=== PATIENT | female | born 1980 | race Asian ===

== ENCOUNTER → 2016-03-25 | Outpatient (CLI) | payer OTHER ==
[2016-03-25 14:46] LABS: BASO % 0.5 %; BASO ABS # 0.03 K/uL (0-0.2); COMPLETE YES; EOS % 6.8 %; HEMATOCRIT 39.6 % (37-47); IG% 0.3 %; LYMPH % 33.3 %; LYMPH ABS # 1.92 K/uL (1.2-3.4); MEAN CELL VOLUME 80.3 fL (80-100); MEAN CORPUSCULAR HGB CONC 33.6 g/dl (32-36); MONO % 7.8 %; NEUT % 51.3 %; PLATELET COUNT 277 K/uL (130-400); RED BLOOD COUNT 4.93 M/uL (4.2-5.4); WHITE BLOOD COUNT 5.77 K/uL (4.8-10.8)
[2016-03-25 15:04] LABS: ALT/SGPT 18 U/L (12-78); AST/SGOT 8 U/L (15-37); BLOOD UREA NITROGEN 14 mg/dl (7-18); BUN/CREATININE RATIO 25.8 (10-20); CALCIUM 8.7 mg/dl (8.5-10.1); CARBON DIOXIDE 26 mmol/L (21-32); CHLORIDE 105 mmol/L (98-107); CREATININE 0.55 mg/dl (0.60-1.20); GLUCOSE 91 mg/dl (70-99); SODIUM 139 mmol/L (136-145)
[2016-03-25 15:15] LABS: ALKALINE PHOSPHATASE 59 U/L (45-117); FERRITIN 13.4 ng/ml (8.0-388.0)
== END | disposition home or self-care (01) ==
LOC: C.LAB1850 12:52
PROVIDERS: ATTEND Dermatology
DX: L29.9 Pruritus, unspecified (principal); L81.9 Disorder of pigmentation, unspecified

== ENCOUNTER → 2016-06-17 | Outpatient (CLI) | payer OTHER | END | disposition home or self-care (01) | LOC: C.PAPS 09:29 | PROVIDERS: ATTEND Family Medicine | DX: Z12.4 Encounter for screening for malignant neoplasm of cervix (principal) ==

== ENCOUNTER → 2016-07-20 | Outpatient (CLI) | payer OTHER | END | disposition home or self-care (01) | LOC: C.LAB1850 14:31 | PROVIDERS: ATTEND Dermatology | DX: E55.9 Vitamin D deficiency, unspecified (principal) ==

== ENCOUNTER → 2016-12-22 | Outpatient (CLI) | payer OTHER ==
[2016-12-22 13:33] LABS: BASO % 0.3 %; BASO ABS # 0.02 K/uL (0-0.2); COMPLETE YES; HEMATOCRIT 36.4 % (37-47); IG% 0.6 %; LYMPH % 27.8 %; LYMPH ABS # 1.82 K/uL (1.2-3.4); MEAN CELL VOLUME 79.5 fL (80-100); MEAN CORPUSCULAR HEMOGLOBIN 26.6 pg (25-34); MEAN CORPUSCULAR HGB CONC 33.5 g/dl (32-36); MEAN PLATELET VOLUME 10.8 fL (7.4-10.4); NEUT % 60.3 %; PLATELET COUNT 285 K/uL (130-400); RED BLOOD COUNT 4.58 M/uL (4.2-5.4); WHITE BLOOD COUNT 6.54 K/uL (4.8-10.8)
[2016-12-22 14:33] LABS: URINE APPEARANCE CLEAR (CLEAR); URINE BILIRUBIN NEG (NEG); URINE COLOR YELLOW; URINE NITRITE NEG (NEG); UROBILINOGEN NEG (NEG)
[2016-12-22 14:45] LABS: MANUAL MICROSCOPIC REQUIRED? NO; REVIEW REQ? NO
[2016-12-27 01:36] LABS: CHLAMYDIA TRACH RNA*** NOT DETECTED (NOT DETECTED); GC (NEIS GONORRHOEAE)RNA** NOT DETECTED (NOT DETECTED)
== END | disposition home or self-care (01) ==
LOC: C.LAB1850 11:59
PROVIDERS: ATTEND Obstetrics & Gynecology
DX: Z34.82 Encounter for supervision of other normal pregnancy, second trimester (principal); Z3A.00 Weeks of gestation of pregnancy not specified

== ENCOUNTER → 2017-02-08 | Outpatient (CLI) | payer OTHER ==
[2017-02-08 15:17] LABS: URINE APPEARANCE CLEAR (CLEAR); URINE BILIRUBIN NEG (NEG); URINE COLOR YELLOW; URINE EPITHELIAL CELL AUTO >30 /lpf (0-5); URINE NITRITE NEG (NEG); URINE SPECIFIC GRAVITY 1.016 (1.000-1.030); UROBILINOGEN NEG (NEG)
[2017-02-08 15:21] LABS: MANUAL MICROSCOPIC REQUIRED? NO; REVIEW REQ? NO
== END | disposition home or self-care (01) ==
LOC: C.LABSPEC 14:54
PROVIDERS: ATTEND Obstetrics & Gynecology
DX: Z34.82 Encounter for supervision of other normal pregnancy, second trimester (principal)

== ENCOUNTER → 2017-02-08 | Outpatient (CLI) | payer OTHER ==
[2017-02-08 14:37] LABS: HEMATOCRIT 35.6 % (37-47)
[2017-02-08 15:20] LABS: GTGD 50 Grams
== END | disposition home or self-care (01) ==
LOC: C.LAB1850 12:19
PROVIDERS: ATTEND Obstetrics & Gynecology
DX: Z34.82 Encounter for supervision of other normal pregnancy, second trimester (principal)

== ENCOUNTER → 2017-03-10 | Outpatient (CLI) | payer OTHER ==
[2017-03-24 04:23] LABS: CHOLIC ACID <0.5 umol/L (< OR = 1.8); DEOXYCHOLIC ACID 1.1 umol/L (< OR = 2.4); TOTAL BILE ACIDS 3.1 umol/L (< OR = 6.8)
== END | disposition home or self-care (01) ==
LOC: C.LAB1850 14:22
PROVIDERS: ATTEND Obstetrics & Gynecology
DX: O99.713 Diseases of the skin and subcutaneous tissue complicating pregnancy, third trimester (principal); L29.9 Pruritus, unspecified

== ENCOUNTER → 2017-04-07 | Outpatient (CLI) | payer OTHER | END | disposition home or self-care (01) | LOC: C.LABSPEC 13:44 | DX: Z34.83 Encounter for supervision of other normal pregnancy, third trimester (principal) ==

== ENCOUNTER 2017-05-01 07:45 | Inpatient (IN) | payer OTHER ==
--- NOTE | 2017-04-24 15:39 | PAT Medication Instructions ---
Service Date Apr 24, 2017. Current Home Medication List Multivit/Min/Iron/Fol Ac/Pren ( Vitamin), 1 TAB PO DAILY Medication Instructions For Your Scheduled Surgery - Hold the following medications the morning of surgery: Multivit/Min/Iron/Fol Ac/Pren ( Vitamin), 1 TAB PO DAILY If you have any questions please call us at [phone] or [phone] or [phone]
[2017-04-24 16:19] LABS: BASO % 0.2 %; BASO ABS # 0.02 K/uL (0-0.2); EOS % 2.7 %; EOS ABS # 0.24 K/uL (0-0.5); HEMATOCRIT 36.2 % (37-47); HEMOGLOBIN 11.6 g/dL (12.0-16.0); LYMPH % 27.2 %; LYMPH ABS # 2.41 K/uL (1.2-3.4); MEAN CELL VOLUME 76.5 fL (80-100); MEAN CORPUSCULAR HEMOGLOBIN 24.5 pg (25-34); MEAN PLATELET VOLUME 10.1 fL (7.4-10.4); MONO % 6.7 %; MONO ABS # 0.59 K/uL (0.11-0.59); NEUT % 62.1 %; NEUT ABS # 5.49 K/uL (1.4-6.5); NUCLEATED RED BLOOD CELL ABS 0.02 K/uL (0-0); PLATELET COUNT 257 K/uL (130-400); RED CELL DISTRIBUTION WIDTH CV 14.7 % (11.5-14.5); RED CELL DISTRIBUTION WIDTH SD 41.3 fL (36.4-46.3); WHITE BLOOD COUNT 8.85 K/uL (4.8-10.8)
--- NOTE | 2017-04-28 08:22 | HISTORY & PHYSICAL EXAMINATION ---
DATE OF ADMISSION: 05/01/2017 HISTORY OF PRESENT ILLNESS: Allyson is scheduled for section on 05/01/2017. This will be a repeat. She has had 2 prior sections and thus we did not offer for this . the only complicating factor is she is advanced maternal age, age 37, her testing was normal though. She was negative for diabetes screening. Anatomy ultrasound was normal. PAST MEDICAL HISTORY: She is healthy, 2 prior sections. PAST SURGICAL HISTORY: No other medical problems. MEDICATIONS: Prenatals. DRUG ALLERGIES: None. REVIEW OF SYSTEMS: Negative. PHYSICAL EXAMINATION: VITAL SIGNS: Stable. She is afebrile. CHEST: Clear. CARDIOVASCULAR: Normal rate and rhythm. No audible murmur. ABDOMEN: Gravid, symphysis fundal height is at term. heart rate tones are by nonstress test. PELVIC: Exam not done at this time. IMPRESSION AND PLAN: This is her third section. We discussed risks, benefits and alternatives. Did not recommend it be back in this situation. Discussed risks including injury to bowel, bladder, ureter, vessels, deep vein thrombosis, pulmonary embolus and injury to the baby. We discussed increased risk of internal organ injury when this is her third section due to potential scar tissue. Discussed how this would all be addressed. After full discussion of the procedure, risks, benefits and alternatives, were scheduled for a low segment transverse section.
[~2017-05-01] VITALS: Ht 154.9 cm; Wt 75.0 kg
[2017-05-01] VITALS (12 sets, daily range): BP systolic 100–114; BP diastolic 58–70; PULSE 69–82; TEMP 36–36.9; O2SAT 97–100; Ht 154.9 cm; Wt 75.0 kg
[~2017-05-01 07:45] MED LIST: CEFAZOLIN IV 2,000 MG in SYRINGE 0 ML IV SCH; CITRIC ACID/SODIUM CITRATE 15 ML UDC PO SCH; LACTATED RINGER'S 1000ML 1,000 ML IV SCH; PRENTAB26 PO
--- NOTE | 2017-05-01 08:37 | History & Physical Bridge Note ---
H&P Re-Evaluation Bridge Note: I have examined the patient, reviewed the History & Physical and in the interval since the performance of the History & Physical I have noted the following changes of clinical significance: No changes noted
[2017-05-01] MEDS ORDERED: FENTANYL CITRATE INJ 50 MCG/1 ML 2 ML VIAL ONE (09:19)
[2017-05-01] MEDS ORDERED: MoRPHine SULFATE PF 1 MG/ML 10 ML AMP/VIAL ONE (09:20)
[2017-05-01] MEDS ORDERED: OXYTOCIN INJ 10 UNITS/ML VIAL ONE ×2 (09:21→10:27)
[2017-05-01] MEDS ORDERED: PHENYLEPHRINE HCL INJ 10 MG/ML VIAL ONE (10:13)
--- NOTE | 2017-05-01 10:56 | [facility] Post Operative Brief Note ---
Immediate Operative Summary Operative Date May 01, 2017. Pre-Operative Diagnosis Repeat Caesarean Section Post-Operative Diagnosis Repeat Caesarean Section Procedure(s) Performed Repeat Caesarean Section for a living female child at [address] Coelho Hot Metal Car Operator Surgeon(s) Dr. Tellez Estimated Blood Loss 600 ml Findings Consistent with Post-Op Diagnosis Specimens placenta-hold arterial/venous cord gases cord blood Drains Luna Anesthesia Type MAC Spinal Regional Complication(s) none Disposition Accompanied Pt To Recover: no Disposition: L&D
[2017-05-01] MEDS ORDERED: HYDROCORTISONE ACETATE 25 MG SUPP PR PRN (11:00)
[2017-05-01] MEDS ORDERED: MAGNESIUM HYDROXIDE SUSP 30 ML UDC PO PRN (11:00)
[2017-05-01] MEDS ORDERED: SENNA 8.6 MG TAB PO PRN (11:00)
[2017-05-01] MEDS ORDERED: LANOLIN OINT EXT PRN (11:00)
[2017-05-01] MEDS ORDERED: OXYCODONE/ACETAMINOPHEN 5-325 TAB PO PRN (11:00)
[2017-05-01] MEDS ORDERED: SUPERCREAM 0.870 % 15GM JAR EXT PRN (11:00)
[2017-05-01] MEDS ORDERED: BENZOCAINE 20% AER SPR 82.5 GM CAN EXT PRN (11:00)
[2017-05-01] MEDS ORDERED: DIPHTHERIA/TETANUS/PERTUSSIS 0.5 ML SYR/VIAL IM. ONE (11:00)
[2017-05-01] MEDS ORDERED: SODIUM CHLORIDE 0.9% 1000ML 1,000 ML IV PRN (11:10)
[2017-05-01] MEDS ORDERED: NALOXONE HCL INJ 1 MG in SODIUM CHLORIDE 0.9% 1000ML 1,000 ML IV PRN (11:10)
[2017-05-01] MEDS ORDERED: NALOXONE HCL INJ 0.08 MG in SYRINGE 1.8 ML IV PRN (11:10)
[2017-05-01] MEDS ORDERED: LACTATED RINGER'S 1000ML 500 ML IV PRN (11:10)
--- NOTE | 2017-05-01 11:14 | Anesthesiology Progress Note ---
Anesthesia Post Op Note Date & Time May 01, 2017 at 11:13 Notes Mental Status: alert / awake / arousable, participated in evaluation Pt Amnestic to Procedure: Yes Nausea / Vomiting: adequately controlled Pain: adequately controlled Airway Patency, RR, SpO2: stable & adequate BP & HR: stable & adequate Hydration State: stable & adequate Neuraxial Anesthesia: was administered, sensory block is resolving Anesthetic Complications: no major complications apparent
[2017-05-01] MEDS ORDERED: PROMETHAZINE HCL INJ 25 MG in SODIUM CHLORIDE 0.9% 50ML 50 ML IV PRN (11:15)
[2017-05-01] MEDS ORDERED: DiphenhydrAMINE HCL 50 MG/ML VIAL IV PRN (11:15)
[2017-05-01] MEDS ORDERED: MoRPHine SULFATE 2 MG/ML CARP IV PRN (11:15)
[2017-05-01] MEDS ORDERED: ONDANSETRON INJ 2 MG/ML 2 ML VIAL IV PRN (11:15)
[2017-05-01] MEDS ORDERED: KETOROLAC TROMETHAMINE 30 MG/ML VIAL IV. PRN (11:15)
[2017-05-01] MEDS ORDERED: NALOXONE HCL 0.4 MG/1 ML VIAL/CARP IV PRN (11:15)
[2017-05-01] MEDS ORDERED: MoRPHine SULFATE PF 1 MG/ML 10 ML AMP/VIAL EPI PRN (11:15)
[2017-05-01] MEDS ORDERED: EpHEDrine SULFATE INJ 50 MG/ML AMP IV PRN (11:15)
[2017-05-01] MEDS ORDERED: NO NARCOTICS OR SEDATIVES SCH (11:15)
[2017-05-01] MEDS ORDERED: NALBUPHINE HCL INJ 10 MG/ML AMP IV PRN (11:15)
[2017-05-01] MEDS ORDERED: MEPERIDINE HCL 25 MG/ML CARP IV PRN (11:15)
--- NOTE | 2017-05-01 11:21 | Discharge Instructions ---
Discharge Instructions Date of Service May 01, 2017. Admission Reason for Admission: Previous Section Discharge Discharge Diagnosis / Problem: Discharge Goals Goal(s): Routine recovery after Medications Continue Dispensed Medications: supercream, lansinoh Activity Recommendations Activity Limitations: per Instructions/Follow-up section . Instructions / Follow-Up Instructions / Follow-Up ACTIVITY RECOMMENDATIONS: * Gradual return to full activity over the next 2-3 weeks. * No lifting - nothing heavier than baby over the next 2-3 weeks. * Do not engage in vigorous exercise, sexual activity or sports until cleared by your physician. * Do not drive or operate any motorized equipment until cleared by your physician. * You may shower/bathe daily. MEDICATIONS: For discomfort or pain, you may use Acetaminophen (Tylenol), Ibuprofen (Advil), or Naproxen (Aleve) following the package directions. For constipation you may use Colace following the package directions. BREAST CARE: If you are not breast feeding: * Wear a supportive bra 24 hours a day for one to two weeks. * Avoid stimulating your breasts and nipples as much as possible during the first few weeks after delivery. * When taking a shower, have the warm water hit your back, not breasts. * When your breasts feel full, apply ice packs. Usually three to four times a day helps ease the discomfort. * Take a mild pain medication (Tylenol / Motrin) when you are uncomfortable. If breast feeding: * Use breast milk to lubricate nipples. Lansinoh cream may be used for sore nipples. You do not need to remove cream prior to breast feeding. If using a different brand of cream, check the label for directions regarding removal of cream prior to nursing. * Wear a supportive bra. * If having problems with breasts or breast feeding, call a sap ppm consultant or your health care provider. SPECIAL CARE INSTRUCTIONS: When you are discharged from the hospital, it is important for you to follow the instructions listed below: * During the first week at home, you should be able to care for yourself and your baby. In addition, the usual light household activities are encouraged. * Limit your activities to the way you feel. Do not try to clean the house or move furniture. Be sensible. * If you actively engage in sports and have done so up until the time of your delivery, you may resume these activities as soon as you feel able. This may take up to one month or even longer. Use good judgment. * Continue to take your vitamins for at least six weeks after the of your baby. * Your diet need not be limited unless you were on a special diet before your delivery. Breast-feeding mothers need around 2500 calories per day and at least 64-80 ounces of fluid per day (8 to 10 glasses). * You should eat foods from the four major food groups. Crash diets or fad diets are to be avoided. Eating lean meats, fresh fruits and vegetables, low-fat dairy products, high fiber foods and a regular exercise program, will help you get back to your pre- weight without putting your health at risk. * Constipation is sometimes a problem after delivery. Take a mild laxative as needed. If breast feeding, Milk of Magnesia is acceptable to use. You may use a suppository or Fleets enema. * A daily shower or tub bath is suggested. Wash incision daily with warm soapy water and pat dry. It doesn't need to be covered unless drainage is present. * A bloody vaginal discharge will usually continue until around four weeks . A small amount of bleeding may continue for as long as six weeks. Vaginal discharge changes from the bright red bleeding after delivery to pink then brownish and finally yellowish-pink before becoming white and disappearing. * Bleeding may increase with activity. Your first period may come in 4-8 weeks. If you are breast feeding, your period may be delayed even longer. * [place] (sex) can begin whenever both you and your partner feel comfortable and do not have any form of genital infection. It is recommended that you wait at least six weeks for internal and external healing to occur. If you have questions, please talk to your health care practitioner. A condom should be used to prevent infection and . * Foreplay, gentle intercourse and lubrication is very important the first several times to prevent pain. A water-based lubricant such as K-Y jelly or Astroglide may be used. * If you have RH negative blood and your baby is RH positive, you will receive RHOGAM by injection prior to discharge. The nurse will give you a card to keep with you that has the date and place that you received RHOGAM after delivery. * During your care, you had a Rubella screen done to check for the presence of rubella antibodies in your blood. If your test was negative, you will receive a Rubella vaccine prior to discharge. This vaccine may cause a fever, soreness at the injection site and flu-like symptoms. If these symptoms persist, notify your health care practitioner. is not advised for one month after a Rubella vaccine. * Verbalizes understanding of car seat law as reviewed with patient nursing. * Car Seat hand-out given and reviewed with patient by nursing. * Shaken baby information reviewed with patient by nursing. Call you doctor if: * Heavy bleeding (saturating several pads an hour) or passing clots the size of your fist. * A fever >101 degrees F (38.3 degrees C) on two occasions four hours apart and /or chills. * Unusual pain in the pelvic or vaginal areas. * Call the doctor for any increased redness, drainage or swelling around the incision and any pain unrelieved by prescribed pain medication. * "Baby Blues" lasting longer than two weeks. If you have any questions or concerns, call your health care practitioner at . FOLLOW UP VISIT: * Please call the office at to schedule a 6 week examination. It is important you keep this appointment. It is important for you to make arrangements for either yearly or twice yearly check-ups thereafter. Current Hospital Diet Patient's current hospital diet: Discharge Diet Recommended Diet: Regular Diet Procedures Procedures Performed: Repeat Caesarean Section for a living female child at 1026 Pending Studies Studies pending at discharge: no Medical Emergencies . Who to Call and When: Medical Emergencies: If at any time you feel your situation is an emergency, please call [phone] immediately. . Non-Emergent Contact Non-Emergency issues call your: Primary Care Provider . . "Provider Documentation" section prepared by Shayy Franco. . VTE Core Measure Inpt VTE Proph given/why not?: SCD's
[2017-05-01] MEDS: OXYTOCIN INJ 20 UNITS in LACTATED RINGER'S 1000ML 1,000 ML IV SCH ×2 (11:35→19:33)
--- NOTE | 2017-05-01 12:49 | OPERATIVE REPORT ---
DATE OF OPERATION: 05/01/2017 PREOPERATIVE DIAGNOSIS: Repeat section. POSTOPERATIVE DIAGNOSIS: Repeat section. PROCEDURE: Low transverse section. SURGEON: Dr. Mike Coelho. WATER HAULER: Dr. Yee, [facility] resident. ESTIMATED BLOOD LOSS: 600 mL FINDINGS: Consistent with preop diagnosis. SPECIMENS: Placenta and cord gases and cord blood. DRAINS: Villegas catheter. ANESTHETIC: Spinal. COMPLICATIONS: None. DISPOSITION: Labor and delivery. DESCRIPTION OF PROCEDURE: The patient was given a spinal anesthetic, prepped and draped in supine position after receiving a Villegas catheter. She received preoperative antibiotics and then skin area was tested with pickups with teeth and found to be adequate. Scalpel was used to incise over the prior Pfannenstiel dissecting down through subcutaneous fat to the fascia in the midline. Fascia dissected laterally with curved Mcfarlane scissors and then fascia dissected away from the rectus muscles superiorly and inferiorly with curved Mayos. Rectus muscle was split. Peritoneal cavity entered in a superior location and the peritoneal cavity opening enlarged to allow exposure and then bladder retractor placed. There were significant bladder adhesions. We carefully used Metzenbaums to lyse these away and then were able to expose the low segment and scalpel was used to make a low transverse incision. Entry was done bluntly with the coning machine operator's fingers and then opening expanded with the coning machine operator's fingers to allow delivery. Baby was in vertex position, delivered by flexion of the head and then pressure on the abdomen. Baby was delivered without difficulty. Loose nuchal cord x2. Clear fluid. Mouth and then nares were suctioned. Live vigorous female . Cord clamped and cut. Cord gases obtained. Cord blood obtained. Placenta removed manually. We ensured all placental material removed with a moist lap. Uterus exteriorized. IV Pitocin started. Uterus closed in the usual fashion with a running 0 Monocryl locked and a second reinforcing nonlocked 0 Monocryl. We did ensure the bladder was well away from the closure site. After generous irrigation and suction of the posterior cul-de-sac and anterior bladder flap regions, uterus was placed back in the peritoneal cavity and hemostasis was excellent. Retractors removed. Fascia closed with 0 Vicryl. Note, we did ensure there were no rectus muscle bleeders. Subcutaneous fat irrigated and closed with 3-0 Vicryl and skin closed with a 4-0 subcuticular Monocryl. Sponge and instrument counts correct. Urine was clear at the end of the procedure. I attest to the content of the Intraoperative Record and any orders documented therein. Any exceptions are noted below. MTDD
[2017-05-01] MEDS: DOCUSATE SODIUM 100 MG CAP PO SCH (20:11)
[2017-05-01] MEDS: SIMETHICONE 80 MG CHEW PO SCH (20:11)
[2017-05-02] VITALS (10 sets, daily range): BP systolic 96–117; BP diastolic 57–79; PULSE 83–97; TEMP 36.4–37.1; O2SAT 97–99
[2017-05-02] MEDS ORDERED: ZOLPIDEM TARTRATE 5 MG TAB PO PRN (04:00)
[2017-05-02] MEDS ORDERED: ONDANSETRON INJ 2 MG/ML 2 ML VIAL IV PRN (04:00)
[2017-05-02] MEDS ORDERED: MEPERIDINE HCL 50 MG/ML CARP IV PRN ×2 (04:00)
[2017-05-02] MEDS ORDERED: DC INTRASPINAL MORPHINE SCH (04:00)
[2017-05-02] MEDS ORDERED: DiphenhydrAMINE HCL 50 MG/ML VIAL IV PRN (04:00)
[2017-05-02] MEDS ORDERED: KETOROLAC TROMETHAMINE 30 MG/ML VIAL IV. PRN (04:00)
--- NOTE | 2017-05-02 06:44 | Progress Note ---
Subjective May 02, 2017. Subjective conversation w/ patient (Patient seen and examined at bedside) Ambulation: ambulating normally Voiding: no voiding problems Passing Gas: Yes Diet Tolerance: Regular Diet Lochia: Moderate Feeding Type: Breast Feeding Pain: 5/10 pain, localized to the incision Review of Systems Constitutional: No fever, No chills Respiratory: No shortness of breath Cardiac: No chest pain Abdomen: No nausea, No vomiting Female : No dysuria Objective Vital Signs Date Time Temp Pulse Resp B/P (MAP) Pulse Ox O2 Delivery O2 Flow Rate FiO2 05/02/17 03:40 37.1 83 18 96/57 (70) 97 Room Air 05/02/17 03:00 18 98 05/02/17 02:00 18 98 05/02/17 01:00 18 98 05/02/17 00:45 37.1 86 18 111/72 (85) 99 Room Air 05/02/17 00:45 99 Room Air 05/02/17 00:00 18 99 05/01/17 23:00 18 99 05/01/17 22:00 18 98 05/01/17 21:00 18 97 05/01/17 20:11 97 Room Air 05/01/17 20:11 36.9 69 18 107/58 (74) 97 Room Air 05/01/17 20:00 18 97 05/01/17 19:00 18 98 05/01/17 18:09 18 100 05/01/17 18:00 16 100 Room Air 05/01/17 16:36 36.3 81 18 100/64 (76) 100 Room Air 05/01/17 16:30 18 100 05/01/17 16:23 36.0 82 18 114/70 (85) 100 Room Air 05/01/17 15:25 100 Room Air Physical Exam General Appearance: WELL-APPEARING, WD/WN, NO APPARENT DISTRESS Respiratory/Chest: lungs clear, normal breath sounds Cardiovascular: regular rate, rhythm Abdomen: soft Fundus: Firm, Tender, Relation to Umbilicus (1 below) Incision Description: Clean, Dry & Intact Extremities: no calf tenderness Laboratory Results Last 24 Hours Test 05/02/17 06:00 Medications Current Inpatient Medications Medications (Trade) Dose Ordered Sig/Jose Route Start Time Stop Time Status Last Admin Dose Admin Ketorolac Tromethamine (Toradol Inj) 30 mg Q6H PRN IV. 05/02/17 04:00 05/07/17 03:59 05/01/17 20:12 30 MG Oxycodone/ Acetaminophen (Percocet 5-325mg Tab) `1-2 tabs for pain 1 tab ... Q4H PRN PO 05/02/17 04:00 05/16/17 03:59 Ibuprofen (Motrin Tab) 600 mg Q4H PRN PO 05/01/17 11:00 05/31/17 10:59 Bisacodyl (Dulcolax Tab) 5 mg HS ONCE PO 05/02/17 22:00 05/02/17 22:01 Bisacodyl (Dulcolax Supp) 10 mg PRN PRN [place] 05/03/17 11:00 06/02/17 10:59 Docusate Sodium (coLACE CAP) 100 mg BID PO 05/01/17 20:00 05/31/17 19:59 05/01/17 20:11 100 MG Magnesium Hydroxide (Milk Of Magnesia Susp) 30 ml HS PRN PO 05/01/17 11:00 05/31/17 10:59 Cocaine HCl (Supercream 0.870% Cr) BID PRN EXT 05/01/17 11:00 05/15/17 10:59 Lanolin (Lanolin Oint) PRN PRN EXT 05/01/17 11:00 05/31/17 10:59 Hydrocortisone Acetate (Anusol Hc Supp) 25 mg BID PRN [place] 05/01/17 11:00 05/31/17 10:59 Benzocaine (Dermoplast Aero Spr) 1 appln PRN PRN EXT 05/01/17 11:00 05/31/17 10:59 Diphenhydramine HCl (Benadryl Cap) 25 mg QID PRN PO 05/02/17 04:00 06/01/17 03:59 Diphenhydramine HCl (Benadryl Inj) 25 mg QID PRN IV 05/02/17 04:00 06/01/17 03:59 Senna (Senokot Tab) 17.2 mg HS PRN PO 05/01/17 11:00 05/31/17 10:59 Prenat Multivit/ [place]/Iron/Folic Ac ( Vitamin Tab) 1 tab DAILY PO 05/02/17 08:00 3/15/18 07:59 Meperidine HCl (Demerol Inj) 50 mg Q4H PRN IV 05/02/17 04:00 05/16/17 03:59 Meperidine HCl (Demerol Inj) 75 mg Q4H PRN IV 05/02/17 04:00 05/16/17 03:59 Promethazine HCl 25 mg/Sodium Chloride 51 ml @ 204 mls/hr Q4H PRN IV 05/01/17 11:15 05/31/17 11:14 Ondansetron HCl (Zofran Inj) 4 mg Q4H PRN IV 05/02/17 04:00 06/01/17 03:59 Zolpidem Tartrate (Ambien Tab) 5 mg HSZ PRN PO 05/02/17 04:00 06/01/17 03:59 Simethicone (Mylicon Chew Tab) 80 mg QID PO 05/01/17 13:00 05/31/17 12:59 05/01/17 20:11 80 MG Assessment and Plan Post-Op Day#: 1 Continue Routine Care: 37 year old s/p elective repeat day 1 - pt doing well clinically - O+, Rubella immune, GBS +ve - vitals reviewed and wnl - hemoglobin 11.6 yesterday & another Hgb ordered for today - continue to encourage ambulation, and analgesia prn Resident Physician Supervision Note: I interviewed and examined the patient. Discussed with Dr. Lucas and agree with findings and plan as documented in the note. Any exceptions or clarifications are listed here: [None] Documented By: Jony Coelho Resident Tracking Resident Involvement: Resident Care Provided Care Provided: OB Delivery
[2017-05-02 07:19] LABS: BASO % 0.2 %; BASO ABS # 0.02 K/uL (0-0.2); EOS % 1.8 %; EOS ABS # 0.17 K/uL (0-0.5); HEMATOCRIT 33.2 % (37-47); HEMOGLOBIN 10.6 g/dL (12.0-16.0); IG# 0.05 K/uL (0.00-0.02); LYMPH % 14.7 %; LYMPH ABS # 1.36 K/uL (1.2-3.4); MEAN CORPUSCULAR HEMOGLOBIN 24.3 pg (25-34); MEAN CORPUSCULAR HGB CONC 31.9 g/dl (32-36); MEAN PLATELET VOLUME 9.7 fL (7.4-10.4); MONO % 6.7 %; MONO ABS # 0.62 K/uL (0.11-0.59); NEUT % 76.1 %; NEUT ABS # 7.02 K/uL (1.4-6.5); PLATELET COUNT 227 K/uL (130-400); RED CELL DISTRIBUTION WIDTH SD 41.6 fL (36.4-46.3); WHITE BLOOD COUNT 9.24 K/uL (4.8-10.8)
[2017-05-02] MEDS ORDERED: PRENATAL VITAMIN TAB PO SCH (08:00)
[2017-05-02] MEDS: DOCUSATE SODIUM 100 MG CAP PO SCH ×2 (08:37→20:13)
[2017-05-02] MEDS: SIMETHICONE 80 MG CHEW PO SCH ×4 (08:37→20:13)
[2017-05-02] MEDS: PRENATAL VITAMIN TAB PO SCH (08:37)
[2017-05-02] MEDS: OXYCODONE/ACETAMINOPHEN 5-325 TAB PO PRN ×2 (12:45→23:26)
[2017-05-02] MEDS: IBUPROFEN 600 MG TAB PO PRN ×2 (12:45→23:26)
[2017-05-02] MEDS ORDERED: BISACODYL 5 MG TABEC PO ONE (22:00)
--- NOTE | 2017-05-03 06:16 | Progress Note ---
Subjective May 03, 2017. Subjective conversation w/ patient (Patient seen and examined at bedside) Ambulation: ambulating normally Voiding: no voiding problems Passing Gas: Yes Diet Tolerance: Regular Diet Lochia: Moderate Feeding Type: Breast Feeding Pain: Minimal pain at rest, only after ambulation. Confined to incision. Comment: Pain improved w/analgesia Review of Systems Constitutional: No fever, No chills Respiratory: No shortness of breath Cardiac: No chest pain Abdomen: No pain Female : No dysuria Objective Vital Signs Date Time Temp Pulse Resp B/P (MAP) Pulse Ox O2 Delivery O2 Flow Rate FiO2 05/02/17 23:20 98 Room Air 05/02/17 23:20 37.0 18 116/79 (91) 98 Room Air 05/02/17 20:15 36.4 97 20 111/71 (84) 98 Room Air 05/02/17 15:43 37.0 97 20 117/75 (89) 05/02/17 07:50 37.1 92 20 102/68 (79) Physical Exam General Appearance: WELL-APPEARING, WD/WN, NO APPARENT DISTRESS Respiratory/Chest: lungs clear, normal breath sounds Cardiovascular: regular rate, rhythm Abdomen: soft Fundus: Firm, Non-Tender, Relation to Umbilicus (2 below) Incision Description: Clean, Dry & Intact Extremities: no calf tenderness Laboratory Results Last 24 Hours Test 05/02/17 06:41 White Blood Count 9.24 K/uL Red Blood Count 4.37 M/uL Hemoglobin 10.6 g/dL Hematocrit 33.2 % Mean Corpuscular Volume 76.0 fL Mean Corpuscular Hemoglobin 24.3 pg Mean Corpuscular Hemoglobin Concent 31.9 g/dl Platelet Count 227 K/uL Mean Platelet Volume 9.7 fL Neutrophils (%) (Auto) 76.1 % Lymphocytes (%) (Auto) 14.7 % Monocytes (%) (Auto) 6.7 % Eosinophils (%) (Auto) 1.8 % Basophils (%) (Auto) 0.2 % Neutrophils # (Auto) 7.02 K/uL Lymphocytes # (Auto) 1.36 K/uL Monocytes # (Auto) 0.62 K/uL Eosinophils # (Auto) 0.17 K/uL Basophils # (Auto) 0.02 K/uL RDW Standard Deviation 41.6 fL RDW Coefficient of Variation 15.0 % Immature Granulocyte % (Auto) 0.5 % Immature Granulocyte # (Auto) 0.05 K/uL Medications Current Inpatient Medications Medications (Trade) Dose Ordered Sig/Jose Route Start Time Stop Time Status Last Admin Dose Admin Ketorolac Tromethamine (Toradol Inj) 30 mg Q6H PRN IV. 05/02/17 04:00 05/07/17 03:59 05/01/17 20:12 30 MG Oxycodone/ Acetaminophen (Percocet 5-325mg Tab) `1-2 tabs for pain 1 tab ... Q4H PRN PO 05/02/17 04:00 05/16/17 03:59 05/02/17 23:26 1 TAB Ibuprofen (Motrin Tab) 600 mg Q4H PRN PO 05/01/17 11:00 05/31/17 10:59 05/02/17 23:26 600 MG Bisacodyl (Dulcolax Supp) 10 mg PRN PRN [place] 05/03/17 11:00 06/02/17 10:59 Docusate Sodium (coLACE CAP) 100 mg BID PO 05/01/17 20:00 05/31/17 19:59 05/02/17 20:13 100 MG Magnesium Hydroxide (Milk Of Magnesia Susp) 30 ml HS PRN PO 05/01/17 11:00 05/31/17 10:59 Cocaine HCl (Supercream 0.870% Cr) BID PRN EXT 05/01/17 11:00 05/15/17 10:59 Lanolin (Lanolin Oint) PRN PRN EXT 05/01/17 11:00 05/31/17 10:59 Hydrocortisone Acetate (Anusol Hc Supp) 25 mg BID PRN [place] 05/01/17 11:00 05/31/17 10:59 Benzocaine (Dermoplast Aero Spr) 1 appln PRN PRN EXT 05/01/17 11:00 05/31/17 10:59 Diphenhydramine HCl (Benadryl Cap) 25 mg QID PRN PO 05/02/17 04:00 06/01/17 03:59 Diphenhydramine HCl (Benadryl Inj) 25 mg QID PRN IV 05/02/17 04:00 06/01/17 03:59 Senna (Senokot Tab) 17.2 mg HS PRN PO 05/01/17 11:00 05/31/17 10:59 Prenat Multivit/ [place]/Iron/Folic Ac ( Vitamin Tab) 1 tab DAILY PO 05/02/17 08:00 06/01/17 07:59 05/02/17 08:37 1 TAB Meperidine HCl (Demerol Inj) 50 mg Q4H PRN IV 05/02/17 04:00 05/16/17 03:59 Meperidine HCl (Demerol Inj) 75 mg Q4H PRN IV 05/02/17 04:00 05/16/17 03:59 Promethazine HCl 25 mg/Sodium Chloride 51 ml @ 204 mls/hr Q4H PRN IV 05/01/17 11:15 05/31/17 11:14 Ondansetron HCl (Zofran Inj) 4 mg Q4H PRN IV 05/02/17 04:00 06/01/17 03:59 Zolpidem Tartrate (Ambien Tab) 5 mg HSZ PRN PO 05/02/17 04:00 06/01/17 03:59 Simethicone (Mylicon Chew Tab) 80 mg QID PO 05/01/17 13:00 05/31/17 12:59 05/02/17 20:13 80 MG Assessment and Plan Post-Op Day#: 2 Continue Routine Care: 37 year old s/p elective repeat day 2 - pt doing well clinically - O+, Rubella immune, GBS +ve - vitals reviewed and wnl - hemoglobin 11.6 -> 10.6 - continue to encourage ambulation, and analgesia prn Resident Physician Supervision Note: I interviewed and examined the patient. Discussed with Dr. Westbrook and agree with findings and plan as documented in the note. Any exceptions or clarifications are listed here: [None] Documented By: Fany Powers Resident Tracking Resident Involvement: Resident Care Provided Care Provided: OB Delivery
[2017-05-03 08:00] VITALS: BP 105/67; PULSE 75; TEMP 37; O2SAT 99
[2017-05-03] MEDS: DOCUSATE SODIUM 100 MG CAP PO SCH ×2 (08:21→19:26)
[2017-05-03] MEDS: SIMETHICONE 80 MG CHEW PO SCH ×4 (08:22→19:26)
[2017-05-03] MEDS: IBUPROFEN 600 MG TAB PO PRN ×3 (08:23→23:12)
[2017-05-03] MEDS: PRENATAL VITAMIN TAB PO SCH (08:24)
[2017-05-03] MEDS: OXYCODONE/ACETAMINOPHEN 5-325 TAB PO PRN ×3 (08:24→23:13)
[2017-05-03] MEDS ORDERED: BISACODYL 10 MG SUPP PR PRN (11:00)
[2017-05-03 15:40] VITALS: BP 102/68; PULSE 85; TEMP 36.7; O2SAT 99
[2017-05-03 19:15] VITALS: BP 107/71; PULSE 75; TEMP 36.7; O2SAT 99
[2017-05-03 23:30] VITALS: BP 122/82; PULSE 80; TEMP 36.5
--- NOTE | 2017-05-04 06:26 | Progress Note ---
Subjective May 04, 2017. Subjective conversation w/ patient (Patient seen and examined at bedside) Ambulation: ambulating normally Voiding: no voiding problems Diet Tolerance: Regular Diet Lochia: Moderate Feeding Type: Breast Feeding Pain: 5/10, improved with analgesia Review of Systems Constitutional: No fever, No chills Respiratory: No shortness of breath Cardiac: No chest pain Abdomen: No nausea, No vomiting Female : No dysuria Objective Vital Signs Date Time Temp Pulse Resp B/P (MAP) Pulse Ox O2 Delivery O2 Flow Rate FiO2 05/03/17 23:30 Room Air 05/03/17 23:30 36.5 80 18 122/82 (95) Room Air 05/03/17 19:15 36.7 75 16 107/71 (83) 99 Room Air 05/03/17 19:15 Room Air 05/03/17 15:40 Room Air 05/03/17 15:40 36.7 85 16 102/68 (79) 99 Room Air 05/03/17 08:00 99 Room Air 05/03/17 08:00 37.0 75 16 105/67 (80) 99 Room Air Physical Exam General Appearance: WELL-APPEARING, WD/WN, NO APPARENT DISTRESS Respiratory/Chest: lungs clear, normal breath sounds Cardiovascular: regular rate, rhythm Abdomen: soft Fundus: Firm, Non-Tender, Relation to Umbilicus (2 below u) Incision Description: Clean, Dry & Intact Extremities: no calf tenderness Medications Current Inpatient Medications Medications (Trade) Dose Ordered Sig/Jose Route Start Time Stop Time Status Last Admin Dose Admin Ketorolac Tromethamine (Toradol Inj) 30 mg Q6H PRN IV. 05/02/17 04:00 05/07/17 03:59 05/01/17 20:12 30 MG Oxycodone/ Acetaminophen (Percocet 5-325mg Tab) `1-2 tabs for pain 1 tab ... Q4H PRN PO 05/02/17 04:00 05/16/17 03:59 05/03/17 23:13 1 TAB Ibuprofen (Motrin Tab) 600 mg Q4H PRN PO 05/01/17 11:00 05/31/17 10:59 05/03/17 23:12 600 MG Bisacodyl (Dulcolax Supp) 10 mg PRN PRN TX 05/03/17 11:00 06/02/17 10:59 Docusate Sodium (coLACE CAP) 100 mg BID PO 05/01/17 20:00 05/31/17 19:59 05/03/17 19:26 100 MG Magnesium Hydroxide (Milk Of Magnesia Susp) 30 ml HS PRN PO 05/01/17 11:00 05/31/17 10:59 Cocaine HCl (Supercream 0.870% Cr) BID PRN EXT 05/01/17 11:00 05/15/17 10:59 Lanolin (Lanolin Oint) PRN PRN EXT 05/01/17 11:00 05/31/17 10:59 Hydrocortisone Acetate (Anusol Hc Supp) 25 mg BID PRN TX 05/01/17 11:00 05/31/17 10:59 Benzocaine (Dermoplast Aero Spr) 1 appln PRN PRN EXT 05/01/17 11:00 05/31/17 10:59 Diphenhydramine HCl (Benadryl Cap) 25 mg QID PRN PO 05/02/17 04:00 06/01/17 03:59 Diphenhydramine HCl (Benadryl Inj) 25 mg QID PRN IV 05/02/17 04:00 06/01/17 03:59 Senna (Senokot Tab) 17.2 mg HS PRN PO 05/01/17 11:00 05/31/17 10:59 Prenat Multivit/ [place]/Iron/Folic Ac ( Vitamin Tab) 1 tab DAILY PO 05/02/17 08:00 06/01/17 07:59 05/03/17 08:24 1 TAB Meperidine HCl (Demerol Inj) 50 mg Q4H PRN IV 05/02/17 04:00 05/16/17 03:59 Meperidine HCl (Demerol Inj) 75 mg Q4H PRN IV 05/02/17 04:00 05/16/17 03:59 Promethazine HCl 25 mg/Sodium Chloride 51 ml @ 204 mls/hr Q4H PRN IV 05/01/17 11:15 05/31/17 11:14 Ondansetron HCl (Zofran Inj) 4 mg Q4H PRN IV 05/02/17 04:00 06/01/17 03:59 Zolpidem Tartrate (Ambien Tab) 5 mg HSZ PRN PO 05/02/17 04:00 06/01/17 03:59 Simethicone (Mylicon Chew Tab) 80 mg QID PO 05/01/17 13:00 05/31/17 12:59 05/03/17 19:26 80 MG Assessment and Plan Post-Op Day#: 3 Continue Routine Care: 37 year old s/p elective repeat day 3 - pt doing well clinically - O+, Rubella immune, GBS +ve - vitals reviewed and wnl - hemoglobin 11.6 -> 10.6 - continue to encourage ambulation, and analgesia prn - ready for d/c today - will review d/c instructions Sahyy Franco, PGY1 Resident Physician Supervision Note: I was present with Dr. Franco during the history and exam. I discussed the case with the resident and agree with the findings and plan as documented in the note. Any exceptions or clarifications are listed here: doing well. plan d/ c home. reviewed narcotic prescription. checked on [place] PDMP. Documented By: Devorah Keita Resident Tracking Resident Involvement: Resident Care Provided Care Provided: OB Delivery
[2017-05-04] MEDS ORDERED: MTR600X PO (07:31)
[2017-05-04] MEDS ORDERED: OXYC-57 PO (07:31)
[2017-05-04] MEDS: OXYCODONE/ACETAMINOPHEN 5-325 TAB PO PRN ×2 (08:21→13:37)
[2017-05-04] MEDS: IBUPROFEN 600 MG TAB PO PRN ×2 (08:21→13:37)
[2017-05-04] MEDS: SIMETHICONE 80 MG CHEW PO SCH ×2 (08:21→13:37)
[2017-05-04] MEDS: PRENATAL VITAMIN TAB PO SCH (08:22)
[2017-05-04] MEDS: DOCUSATE SODIUM 100 MG CAP PO SCH (08:22)
[2017-05-04 08:35] VITALS: BP 117/75; PULSE 88; TEMP 37.4; O2SAT 99
[2017-05-04 13:07] VITALS: BP_DIAS 75; PULSE 88; TEMP 37.4
--- NOTE | 2017-05-05 14:21 | DISCHARGE SUMMARY ---
HOSPITAL COURSE: Allyson had a section on 05/01/2016. Operative report is in the system and her procedure was uncomplicated. She was discharged home on May 04, postop day #3. At that time, she was ambulating well, passing flatus, had minimal bleeding, and had no extremity pain. PHYSICAL EXAMINATION: VITAL SIGNS: Stable. She was afebrile. CHEST: Clear. CARDIOVASCULAR: Normal, regular rate and rhythm. ABDOMEN: Soft. Fundus firm, nontender. Incision clean, dry and intact. EXTREMITIES: Negative. IMPRESSION AND PLAN: Postop day #3. Meets criteria. Given Percocet, Motrin and discharge instructions. Hemoglobin 10.6.
== END 2017-05-04 14:10 | disposition home or self-care (01) | DRG 766 ==
LOC: C.LD 07:45 → EDSTATUS 09:00 → C.OBG 15:40
PROVIDERS: ADMIT Obstetrics & Gynecology; ATTEND Obstetrics & Gynecology
PROC: 10D00Z1 Extraction of Products of Conception, Low, Open Approach (ICD-10-PCS; principal; 2017-05-01 09:00)
DX: O99.824 Streptococcus B carrier state complicating childbirth (principal); O69.81X0 Labor and delivery complicated by cord around neck, without compression, not applicable or unspecified; O09.523 Supervision of elderly multigravida, third trimester; Z3A.39 39 weeks gestation of pregnancy; Z37.0 Single live birth